=== PATIENT | female | born 1960 | race Two or more races ===

== ENCOUNTER → 2016-07-09 | Outpatient (CLI) | payer SELFPAY ==
--- NOTE | 2016-07-09 12:20 | XCELERA REPORT ---
[address] [address] Lower Extremity Venous Evaluation Name: MIKE VINCENT Age: 55 yrs Gender: Female : 1960 Patient Status: Outpatient Patient Location: Study Date: 07/09/2016 10:00 AM Procedure: Color flow and duplex imaging of the veins of the left lower extremity as well as the right Common Femoral vein. Reason For Study: LT CALF PAIN Ordering Physician: VERNA BERMAN Performed By: Justine Reyna Right Sided Venous Evaluation The right common femoral vein is fully compressible. Spontaneous and phasic flow is present in the right common femoral vein. Left Sided Venous Evaluation Normal vessel filling wall to wall, compression and augmentation as well as Colour flow down to the infrageniculate veins. Critical Findings Called in to Dr Berman's office at about 1130. Interpretation Summary No duplex evidence of DVT or obstruction in the left lower extremity nor in the right Common Femoral vein. : VERNA BERMAN [place]
== END ==
LOC: SP 09:24
PROVIDERS: ATTEND Family Medicine
DX: M79.662 Pain in left lower leg (principal)
CPT/HCPCS: 93971